=== PATIENT | male | born 1965 | race Caucasian/White ===

== ENCOUNTER 2016-04-01 10:53 | Emergency (ER) | payer MEDICAID ==
[~2016-04-01] VITALS: Ht 172.7 cm; Wt 93.0 kg
[2016-04-01 11:34] VITALS: BP 136/89
== END 2016-04-01 12:07 | disposition home or self-care (01) ==
LOC: ER 10:59
DX: B34.9 Viral infection, unspecified (principal); Z88.0 Allergy status to penicillin
CPT/HCPCS: 99283; A4606; Z7610

== ENCOUNTER 2016-04-20 05:16 | Emergency (ER) | payer MEDICAID ==
[~2016-04-20] VITALS: Ht 172.7 cm; Wt 90.7 kg
[2016-04-20 05:29] VITALS: BP 134/66
== END 2016-04-20 07:12 | disposition home or self-care (01) ==
LOC: ER 05:16
DX: H10.31 Unspecified acute conjunctivitis, right eye (principal); Z88.0 Allergy status to penicillin
CPT/HCPCS: 99283; A4606; Z7610

== ENCOUNTER 2018-10-13 05:49 | Emergency (ER) | payer SELFPAY ==
[~2018-10-13] VITALS: Ht 172.7 cm; Wt 90.7 kg
--- NOTE | 2018-10-13 06:00 | NUR ---
PT BIBSELF C/O PARTIAL VISION LOSS ON R EYE STARTING YESTERDAY MORNING PROGRESSIVELY GETTING WORSE. PT AXO4. RESPIRATIONS EVEN AND UNLABORED. 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 PENDING EVAL FROM ER .
[2018-10-13 06:08] VITALS: BP 162/91
--- NOTE | 2018-10-13 06:25 | NUR ---
[facility] CONTACTED TO HIGHER LEVEL OF CARE REQUEST.
--- NOTE | 2018-10-13 06:34 | NUR ---
IOP, RIGHT: 41, LEFT: 33
--- NOTE | 2018-10-13 07:12 | NUR ---
Call from [facility], pt accepted to [facility] ER. Dr hawkins, Opthalmology: Dr Lange. # for report [phone]. [facility]: [id number]
--- NOTE | 2018-10-13 07:20 | NUR ---
CALLED TRANSPORT [phone] TO [facility] ETA 1000 IS PER GLORY TRIP NUMBER: [id number]
--- NOTE | 2018-10-13 07:50 | NUR ---
CALLED [facility] [phone] ETA IS 30MINS PER AIRAM
--- NOTE | 2018-10-13 08:36 | NUR ---
CALLED [facility] [phone] TO CANCEL CALL TRIP #[id number]
--- NOTE | 2018-10-13 08:36 | NUR ---
AMBULANCE TRANSPORT ARRIVED, REPORT GIVEN, PATIENT IN STABLE CONDITION TO BE TRANSFERRED TO [facility] ER. CALLED [facility] ER AND GAVE REPORT TO
== END 2018-10-13 08:40 | disposition short-term general hospital (02) ==
LOC: ER 05:52
DX: H33.8 Other retinal detachments (principal); Z88.0 Allergy status to penicillin

== ENCOUNTER 2020-08-22 07:59 | Emergency (ER) | payer SELFPAY ==
[~2020-08-22] VITALS: Ht 172.7 cm; Wt 90.7 kg
--- NOTE | 2020-08-22 08:40 | NUR ---
DIFFUSE ABDOMINAL PAIN X 2 WEEKS. DENIES N/V. STS NEED TO TAKE MOM TO HAVE BM. PATIENT A/OX4, AMBULATORY WITH STEADY GAIT. BREATHING EVEN AND UNLABORED, NO SOB NOTED. NEEDS ATTENDED.
[2020-08-22 10:02] LABS: BASOPHILS % (AUTO) 0.8 % (0.0-2.0); EOSINOPHILS % (AUTO) 1.1 % (0.0-6.0); HEMATOCRIT 47 % (39-51); HEMOGLOBIN 15.8 g/dL (13.5-17.5); LYMPHOCYTES # (AUTO) 1.9 /CMM (0.8-4.8); LYMPHOCYTES % (AUTO) 31.7 % (20.0-44.0); MEAN CORPUSCULAR HGB CONC 33 g/dl (31.0-36.0); MEAN CORPUSCULAR VOLUME 83 fL (80-96); MONOCYTES # (AUTO) 0.5 /CMM (0.1-1.30); MONOCYTES % (AUTO) 8.5 % (2.0-12.0); NEUTROPHILS # (AUTO) 3.5 /CMM (1.8-8.9); NEUTROPHILS % (AUTO) 57.9 % (43.0-81.0); PLATELET COUNT (AUTO) 179 /CMM (150-450); RED BLOOD CELL COUNT(AUTO) 5.71 MIL/uL (4.5-6.0)
[2020-08-22 10:10] LABS: CALCIUM, SERUM 8.7 mg/dL (8.5-10.1); CARBON DIOXIDE 25 mmol/L (21-32); CHLORIDE 104 mmol/L (98-107); CREATININE 1.1 mg/dL (0.6-1.3); GLUCOSE 107 mg/dL (74-106); POTASSIUM 3.8 mmol/L (3.5-5.1); SODIUM SERUM 138 mmol/L (136-145); UREA NITROGEN, BLOOD 17 mg/dL (7-18)
[2020-08-22 10:15] LABS: ALANINE AMINOTRANSFERASE 32 U/L (12-78); ALKALINE PHOSPHATASE 114 U/L (46-116); ASPARTATE AMINOTRANSFERASE 20 U/L (15-37); BILIRUBIN,DIRECT 0.2 mg/dL (0.0-0.2); BILIRUBIN,TOTAL 1.1 mg/dL (0.2-1.0); LIPASE 96 U/L (73-393); TOTAL PROTEIN, SERUM 7.6 g/dL (6.4-8.2)
[2020-08-22 11:12] LABS: BILIRUBIN,URINE Negative (NEGATIVE); COLOR,URINE YELLOW (YELLOW); LEUKOCYTE ESTERASE ,URINE Negative (NEGATIVE); NITRITE, URINE Negative (NEGATIVE); PROTEIN,URINE Negative (NEGATIVE); UGLUCOSE Negative (NEGATIVE); UROBILINOGEN,URINE 0.2 EU/dL (0.2)
[2020-08-22] MEDS ORDERED: PANTOPRAZOLE 40 MG TABLET.DR PO ONE ×2 (11:48→12:00)
[2020-08-22] MEDS ORDERED: LANS30CA54 PO (12:20)
--- NOTE | 2020-08-22 12:49 | NUR ---
PATIENT A/OX4, AMBULATORY WITH STEADY GAIT. NO DISTRESS NOTED. DENIES PAINA TT HIS TIME, COPIES OF RESULTS GIVEN TO PATIENT. Patient discharged to home in stable condition. Written and verbal after care instructions given. Patient verbalizes understanding of instruction.
[2020-08-22 12:50] VITALS: BP 133/94
== END 2020-08-22 12:50 | disposition home or self-care (01) ==
LOC: ER 08:05
DX: K40.90 Unilateral inguinal hernia, without obstruction or gangrene, not specified as recurrent (principal); K27.9 Peptic ulcer, site unspecified, unspecified as acute or chronic, without hemorrhage or perforation; Z88.0 Allergy status to penicillin
CPT/HCPCS: 36415; 80048-TC; 80076-TC; 83690-TC; 84484-TC; 85025-TC

== ENCOUNTER 2023-11-02 09:06 | Emergency (ER) | payer SELFPAY ==
[~2023-11-02] VITALS: Ht 172.7 cm; Wt 101.2 kg
[~2023-11-02 09:06] MED LIST: LANS30CA54 PO
[2023-11-02 09:23] VITALS: BP 142/80; TEMP 98.6; O2SAT 96
[2023-11-02] MEDS ORDERED: IBUP-1957 PO (09:41)
== END 2023-11-02 10:47 | disposition home or self-care (01) ==
LOC: ER 09:08
DX: M79.10 Myalgia, unspecified site (principal); Z88.0 Allergy status to penicillin; V43.52XA Car driver injured in collision with other type car in traffic accident, initial encounter; Y93.89 Activity, other specified; Y92.488 Other paved roadways as the place of occurrence of the external cause; Y99.8 Other external cause status